=== PATIENT | female | born 1955 | race Caucasian/White ===

== ENCOUNTER 2016-09-22 06:10 | Emergency (ER) | payer MEDICARE ==
[~2016-09-22] VITALS: Ht 152.4 cm; Wt 54.4 kg
[~2016-09-22 06:10] MED LIST: AMOXICILLIN500 M2 PO; ASPIRIN81 M1 PO; CIPRO500 MG PO; K-Dur 20MEQ20 MEQ PO; LEVAQUIN750 M1 PO; MOTRIN800 MG PO; NKHM; PREDNISONE10 MG PO; PROTONIX40 MG PO
[2016-09-22 06:15] VITALS: BP 134/82
[2016-09-22] MEDS ORDERED: AUGMENTIN 875-875 MG PO (06:23)
[2016-09-22] MEDS ORDERED: LEVAQUIN750 M1 PO (06:38)
[2016-10-17] MEDS ORDERED: ACETAMINOPHEN500 M4 PO (11:04)
[2016-10-17] MEDS ORDERED: FLONASE ALLERG9.9 ML NAS (11:04)
[2016-10-17] MEDS ORDERED: CLARITIN10 MG PO (11:04)
== END 2016-09-22 07:01 | disposition home or self-care (01) ==
LOC: ED 06:10
DX: H66.001 Acute suppurative otitis media without spontaneous rupture of ear drum, right ear (principal); G43.909 Migraine, unspecified, not intractable, without status migrainosus; F41.0 Panic disorder [episodic paroxysmal anxiety]; Z87.891 Personal history of nicotine dependence; Z90.49 Acquired absence of other specified parts of digestive tract; Z98.51 Tubal ligation status; Z98.890 Other specified postprocedural states; Z91.041 Radiographic dye allergy status; Z88.6 Allergy status to analgesic agent; Z88.5 Allergy status to narcotic agent

== ENCOUNTER → 2017-01-14 | Outpatient (CLI) | payer MEDICARE ==
[~2017-01-14] MED LIST changes: +ACETAMINOPHEN500 M4 PO; +AUGMENTIN 875-875 MG PO; +CLARITIN10 MG PO; +FLONASE ALLERG9.9 ML NAS
[2017-01-14 07:20] LABS: BASO # 0.1 10*3/uL (0.0-0.1); EOS # 0.2 10*3/uL (0.0-0.4); EOS % 3.3 % (1.0-4.0); HEMATOCRIT 40.6 % (37.0-47.0); HEMOGLOBIN 14.2 g/dl (12.0-16.0); LYMPH # 2.6 10*3/uL (1.3-4.4); LYMPH % 53.7 % (27.0-41.0); MEAN CELL VOLUME 86.6 fl (81.0-99.0); MEAN CORPUSCULAR HGB 30.3 pg (27.0-31.0); MEAN PLATELET VOLUME 9.7 fl (9.6-12.3); MONO # 0.4 10*3/uL (0.1-1.0); MONO % 8.5 % (3.0-9.0); NEUT # 1.6 10*3/uL (2.3-7.9); NEUT % 33.3 % (47.0-73.0); PLATELET COUNT AUTOMATED 194 10*3/uL (130-400); RED BLOOD COUNT 4.69 10*6/uL (4.10-5.10); RED CELL DISTRI WIDTH 12.4 % (0-14.5); WHITE BLOOD COUNT 4.9 10*3/uL (4.8-10.8)
[2017-01-14 08:06] LABS: ALBUMIN 3.6 gm/dl (3.1-4.5); ALKALINE PHOSPHATASE 76 U/L (45-117); BILIRUBIN, TOTAL 0.4 mg/dl (0.2-1.0); BUN 8 mg/dl (7-24); CARBON DIOXIDE 28 mmol/L (21-32); CHLORIDE 106 mmol/L (98-107); CHOLESTEROL 218 mg/dL (<200); EST GLOM FILT AFRICAN AMERICAN > 60 ml/min; GLUCOSE 101 mg/dL (65-99); HDL CHOLESTEROL 63 mg/dl (40-60); LDL CHOLESTEROL 128 mg/dL (9-159); POTASSIUM 3.8 mmol/L (3.5-5.1); SGOT/AST 14 IU/L (3-35); SGPT/ALT 20 U/L (12-78); SODIUM 141 mmol/L (136-145); TRIGLYCERIDES 134 mg/dl (<150); VLDL CHOLESTEROL 27 mg/dL (6-40)
== END | disposition home or self-care (01) ==
LOC: LAB 06:58
PROVIDERS: Internal Medicine
DX: Z00.00 Encounter for general adult medical examination without abnormal findings (principal)

== ENCOUNTER → 2017-01-27 | Outpatient (CLI) | payer MEDICARE ==
--- NOTE | ~2017-01-27 | ST ---
[place], [place] EXERCISE STRESS TEST REPORT [id number] UNIT #: [id number] ROOM: DOCTOR: ALY DUTTA MD BIRTHDATE: [birth year] DOS: 01/27/2017 EXERCISE MYOCARDIAL PERFUSION STUDY INDICATIONS: Precordial chest pain, family history of coronary artery disease. PROCEDURE: The patient walked on a full Damien protocol stress test for 6 minutes and had to stop because of hip pain. She did not recreate her presenting symptoms of chest discomfort. Her resting heart rate of 72 carmen to 151, which was 95% of her maximum predicted heart rate. The resting blood pressure of 114/68 carmen to 152/84. She had up to 1.[address] segment depression in the lateral precordial leads that resolved early in recovery. One minute prior to completion of the exercise protocol. She was given radionuclide intravenously. IMPRESSION: 1. Adequate exercise capacity without chest pain. Exercise was limited due to hip pain. 2. Abnormal electrocardiographic response to exercise with 1.[address] segment depression in the lateral precordial leads. 3. Nevarez treadmill score -1.5 consistent with a moderate risk for future heart cardiac events. 4. Radionuclide injected. Please see the separate imaging report for further details of the patient's stress test results. ALY DUTTA MD CM:STRESS:EXERCISE STRESS TEST REPORT [id number] ALY DUTTA MD
== END | disposition home or self-care (01) ==
LOC: CARD 01:48
DX: R07.2 Precordial pain (principal); R94.31 Abnormal electrocardiogram [ECG] [EKG]; Z82.49 Family history of ischemic heart disease and other diseases of the circulatory system

== ENCOUNTER → 2017-02-16 | Outpatient (CLI) | payer MEDICARE ==
[2017-02-16 07:42] LABS: FREE T4 0.9 ng/dl (0.76-1.46)
[2017-02-16 07:47] LABS: THYROID STIM HORMONE (HS) 3.17 uIU/ml (0.358-4.75)
== END | disposition home or self-care (01) ==
LOC: LAB 06:32
PROVIDERS: Internal Medicine
DX: E03.9 Hypothyroidism, unspecified (principal)

== ENCOUNTER → 2017-04-21 | Outpatient (CLI) | payer MEDICARE | END | disposition home or self-care (01) | LOC: MAMMO 01:52 | DX: Z12.31 Encounter for screening mammogram for malignant neoplasm of breast (principal) ==

== ENCOUNTER → 2017-10-27 | Outpatient (CLI) | payer MEDICARE ==
[2017-10-27 06:57] LABS: BASO # 0.1 10*3/uL (0.0-0.1); BASO % 1.1 % (0.0-1.0); EOS # 0.2 10*3/uL (0.0-0.4); EOS % 3.2 % (1.0-4.0); HEMATOCRIT 42.9 % (37.0-47.0); HEMOGLOBIN 14.7 g/dl (12.0-16.0); LYMPH # 2.8 10*3/uL (1.3-4.4); LYMPH % 52.8 % (27.0-41.0); MEAN CELL VOLUME 87.4 fl (81.0-99.0); MEAN CORPUSCULAR HGB 29.9 pg (27.0-31.0); MEAN CORPUSCULAR HGB CONC 34.3 g/dl (33.0-37.0); MEAN PLATELET VOLUME 10.4 fl (9.6-12.3); MONO # 0.5 10*3/uL (0.1-1.0); MONO % 8.7 % (3.0-9.0); NEUT # 1.8 10*3/uL (2.3-7.9); PLATELET COUNT AUTOMATED 231 10*3/uL (130-400); RED BLOOD COUNT 4.91 10*6/uL (4.10-5.10); RED CELL DISTRI WIDTH 12.5 % (0-14.5); WHITE BLOOD COUNT 5.3 10*3/uL (4.8-10.8)
[2017-10-27 07:27] LABS: ALBUMIN 3.6 gm/dl (3.1-4.5); BUN 12 mg/dl (7-24); CHLORIDE 104 mmol/L (98-107); CHOLESTEROL 208 mg/dL (<200); CREATININE 0.72 mg/dL (0.55-1.02); POTASSIUM 4.3 mmol/L (3.5-5.1); SGOT/AST 26 IU/L (3-35); SGPT/ALT 37 U/L (12-78); SODIUM 140 mmol/L (136-145); TRIGLYCERIDES 124 mg/dl (<150); VLDL CHOLESTEROL 25 mg/dL (6-40)
[2017-10-27 07:36] LABS: ALKALINE PHOSPHATASE 97 U/L (45-117); HDL CHOLESTEROL 55 mg/dl (40-60); LDL CHOLESTEROL 128 mg/dL (9-159); TOTAL PROTEIN 7.5 gm/dL (6.4-8.2)
== END | disposition home or self-care (01) ==
LOC: LAB 06:26
PROVIDERS: Internal Medicine
DX: E03.9 Hypothyroidism, unspecified (principal); E78.00 Pure hypercholesterolemia, unspecified

== ENCOUNTER → 2017-12-05 | Outpatient (CLI) | payer MEDICARE | END | disposition home or self-care (01) | LOC: RAD 11:46 | DX: M99.08 Segmental and somatic dysfunction of rib cage (principal) ==

== ENCOUNTER → 2019-08-26 | Outpatient (CLI) | payer MEDICARE | END | disposition home or self-care (01) | LOC: MAMMO 12:34 | DX: Z12.31 Encounter for screening mammogram for malignant neoplasm of breast (principal) ==

== ENCOUNTER 2019-09-11 10:47 | Emergency (ER) | payer MEDICARE ==
[~2019-09-11] VITALS: Ht 154.9 cm; Wt 56.7 kg
[2019-09-11 10:54] VITALS: BP 138/98
[2019-09-11] MEDS ORDERED: IBU800 MG PO (13:02)
== END 2019-09-11 13:11 | disposition home or self-care (01) ==
LOC: ED 10:47
DX: M54.5 Low back pain (principal); G43.909 Migraine, unspecified, not intractable, without status migrainosus; Z87.891 Personal history of nicotine dependence; Z91.041 Radiographic dye allergy status; Z88.6 Allergy status to analgesic agent; Z88.1 Allergy status to other antibiotic agents; Z88.4 Allergy status to anesthetic agent; X58.XXXA Exposure to other specified factors, initial encounter; Y93.01 Activity, walking, marching and hiking; Y92.89 Other specified places as the place of occurrence of the external cause; Y99.8 Other external cause status

== ENCOUNTER → 2020-04-01 | Outpatient (CLI) | payer MEDICARE ==
[~2020-04-01] MED LIST changes: +IBU800 MG PO
== END | disposition home or self-care (01) ==
LOC: RAD 08:25
DX: R10.31 Right lower quadrant pain (principal); Z90.49 Acquired absence of other specified parts of digestive tract

== ENCOUNTER → 2021-08-09 | Outpatient (CLI) | payer MEDICARE | END | disposition home or self-care (01) | LOC: COVID19 14:55 | PROVIDERS: ATTEND Internal Medicine | DX: Z11.52 Encounter for screening for COVID-19 (principal) ==

== ENCOUNTER → 2021-11-19 | Outpatient (CLI) | payer MEDICARE | END | disposition home or self-care (01) | LOC: LAB 10:10 | PROVIDERS: ATTEND Nurse Practitioner Family | DX: R19.7 Diarrhea, unspecified (principal) ==

== ENCOUNTER → 2022-04-27 | Outpatient (CLI) | payer MEDICARE | END | disposition home or self-care (01) | LOC: RAD 02:11 | PROVIDERS: ATTEND Nurse Practitioner Family | DX: Z13.820 Encounter for screening for osteoporosis (principal); N95.0 Postmenopausal bleeding; Z78.0 Asymptomatic menopausal state ==

== ENCOUNTER → 2022-05-16 | Outpatient (CLI) | payer MEDICARE | END | disposition home or self-care (01) | LOC: RAD 17:30 | PROVIDERS: ATTEND Nurse Practitioner Family | DX: M25.512 Pain in left shoulder (principal) ==

== ENCOUNTER → 2022-06-23 | Outpatient (CLI) | payer MEDICARE | END | disposition home or self-care (01) | LOC: MAMMO 05-02 09:00 | PROVIDERS: ATTEND Nurse Practitioner Family | DX: Z12.31 Encounter for screening mammogram for malignant neoplasm of breast (principal) ==

== ENCOUNTER → 2023-01-26 | Outpatient (CLI) | payer MEDICARE ==
[2023-01-26 07:29] LABS: BASO # 0.1 10*3/uL (0.0-0.1); EOS # 0.1 10*3/uL (0.0-0.4); HEMATOCRIT 44.2 % (37.0-47.0); LYMPH # 2.4 10*3/uL (1.3-4.4); LYMPH % 48.6 % (27.0-41.0); MEAN CELL VOLUME 88.4 fl (81.0-99.0); MEAN CORPUSCULAR HGB 30.6 pg (27.0-31.0); MEAN CORPUSCULAR HGB CONC 34.6 g/dl (33.0-37.0); MEAN PLATELET VOLUME 9.9 fl (9.6-12.3); MONO # 0.4 10*3/uL (0.1-1.0); MONO % 7.6 % (3.0-9.0); NEUT % 40.8 % (47.0-73.0); PLATELET COUNT AUTOMATED 249 10*3/uL (130-400); RED CELL DISTRI WIDTH 12.5 % (0-14.5)
[2023-01-26 08:02] LABS: ALKALINE PHOSPHATASE 89 U/L (46-116); BUN 11 mg/dl (9-23); CHLORIDE 103 mmol/L (98-107); CHOLESTEROL 258 mg/dL (<200); LDL CHOLESTEROL 177 mg/dL (9-159); POTASSIUM 3.8 mmol/L (3.4-5.1); SGPT/ALT 22 U/L (10-49); THYROID STIM HORMONE (HS) 2.943 uIU/ml (0.550-4.780); TOTAL PROTEIN 7.5 gm/dL (6.0-8.0); TRIGLYCERIDES 134 mg/dl (<150)
== END | disposition home or self-care (01) ==
LOC: LAB 07:07
PROVIDERS: ATTEND Nurse Practitioner Family
DX: E16.2 Hypoglycemia, unspecified (principal); R55 Syncope and collapse; E78.00 Pure hypercholesterolemia, unspecified; Z79.899 Other long term (current) drug therapy

== ENCOUNTER → 2024-03-23 | Outpatient (CLI) | payer MEDICARE ==
[~2024-03-23] MED LIST changes: +ASPIRIN ADULT L81 M2 PO; +ATORVASTATIN CA40 M1 PO; +CLOPIDOGREL75 MG PO; +LEVETIRACETAM500 MG PO
== END | disposition home or self-care (01) ==
LOC: LAB 07:20
PROVIDERS: ATTEND Physician Assistant
DX: G40.209 Localization-related (focal) (partial) symptomatic epilepsy and epileptic syndromes with complex partial seizures, not intractable, without status epilepticus (principal)

== ENCOUNTER 2024-06-01 12:22 | Inpatient (IN) | payer MEDICARE ==
[~2024-06-01] VITALS: Ht 152.4 cm; Wt 58.1 kg
[2024-06-01 12:30] VITALS: BP 153/59
[2024-06-01] MEDS ORDERED: Meclizine Hydrochloride 25 MG TAB PO ONE (12:30)
[2024-06-01] MEDS ORDERED: DIAZEPAM 5 MG TAB PO ONE (12:30)
[2024-06-01] MEDS ORDERED: Ondansetron Hydrochloride 4 MG/2 ML VIAL IV ONE (12:30)
[2024-06-01] MEDS ORDERED: SODIUM CHLORIDE 0.9% 1,000 ML IV ONE ×2 (12:30→14:35)
[2024-06-01] MEDS ORDERED: OXCARBAZEPINE150 MG PO (12:34)
[2024-06-01 12:40] LABS: BASO # 0.1 10*3/uL (0.0-0.1); BASO % 1.1 % (0.0-1.0); EOS # 0.1 10*3/uL (0.0-0.4); EOS % 1.8 % (1.0-4.0); HEMATOCRIT 36.7 % (37.0-47.0); LYMPH # 1.7 10*3/uL (1.3-4.4); LYMPH % 37.6 % (27.0-41.0); MEAN CELL VOLUME 85.3 fl (81.0-99.0); MEAN CORPUSCULAR HGB 30.9 pg (27.0-31.0); MEAN CORPUSCULAR HGB CONC 36.2 g/dl (33.0-37.0); MEAN PLATELET VOLUME 8.9 fl (9.6-12.3); MONO # 0.4 10*3/uL (0.1-1.0); MONO % 8.6 % (3.0-9.0); NEUT # 2.2 10*3/uL (2.3-7.9); NEUT % 50.9 % (47.0-73.0); PLATELET COUNT AUTOMATED 214 10*3/uL (130-400); RED CELL DISTRI WIDTH 11.7 % (0-14.5); WHITE BLOOD COUNT 4.4 10*3/uL (4.8-10.8)
[2024-06-01 12:55] LABS: CHLORIDE 94 mmol/L (98-107); POTASSIUM 3.2 mmol/L (3.4-5.1)
[2024-06-01 12:56] LABS: BUN < 5 mg/dl (9-23)
[2024-06-01] MEDS ORDERED: POTASSIUM CHLORIDE 20 MEQ TAB PO ONE (14:35)
[2024-06-01] MEDS ORDERED: Magnesium Hydroxide 30 ML UDC PO PRN (15:25)
[2024-06-01] MEDS ORDERED: BISACODYL 5 MG TAB PO PRN (15:25)
[2024-06-01] MEDS ORDERED: Ondansetron Hydrochloride 4 MG/2 ML VIAL IV PRN (15:25)
[2024-06-01 18:51] LABS: CHLORIDE 101 mmol/L (98-107); POTASSIUM 3.2 mmol/L (3.4-5.1)
[2024-06-01 18:55] LABS: BUN < 5 mg/dl (9-23)
[2024-06-01 21:55] VITALS: BP 111/51
[2024-06-02] VITALS (8 sets, daily range): BP systolic 112–168; BP diastolic 65–86
[2024-06-02 05:10] LABS: ALKALINE PHOSPHATASE 81 U/L (46-116); CHLORIDE 102 mmol/L (98-107); CHOLESTEROL 222 mg/dL (<200); FREE T4 0.96 ng/dl (0.89-1.76); LDL CHOLESTEROL 144 mg/dL (9-159); SGPT/ALT 17 U/L (5-49); TOTAL PROTEIN 6.5 gm/dL (6.0-8.0); TRIGLYCERIDES 90 mg/dl (<150)
[2024-06-02 05:13] LABS: BUN < 5 mg/dl (9-23); POTASSIUM 4.6 mmol/L (3.4-5.1)
[2024-06-02 06:15] LABS: BASO # 0.1 10*3/uL (0.0-0.1); BASO % 1.3 % (0.0-1.0); EOS # 0.1 10*3/uL (0.0-0.4); HEMATOCRIT 38.3 % (37.0-47.0); LYMPH # 2.2 10*3/uL (1.3-4.4); MEAN CELL VOLUME 87.2 fl (81.0-99.0); MEAN CORPUSCULAR HGB 31.2 pg (27.0-31.0); MEAN CORPUSCULAR HGB CONC 35.8 g/dl (33.0-37.0); MEAN PLATELET VOLUME 9.6 fl (9.6-12.3); MONO # 0.4 10*3/uL (0.1-1.0); NEUT # 1.8 10*3/uL (2.3-7.9); NEUT % 39.5 % (47.0-73.0); PLATELET COUNT AUTOMATED 221 10*3/uL (130-400); RED BLOOD COUNT 4.39 10*6/uL (4.10-5.10); RED CELL DISTRI WIDTH 12.2 % (0-14.5); WHITE BLOOD COUNT 4.6 10*3/uL (4.8-10.8)
[2024-06-02 06:57] LABS: VITAMIN D, 25-HYDROXY 16.4 ng/mL (30-100)
[2024-06-02] MEDS ORDERED: Enoxaparin Sodium 40 MG/0.4 ML SYR SC SCH (10:00)
[2024-06-02] MEDS ORDERED: CLONAZEPAM0.25 MG PO (19:00)
[2024-06-02] MEDS ORDERED: OXcarbazepine 150 MG TAB PO SCH (19:10)
[2024-06-03] VITALS: BP 117/60
[2024-06-03 06:15] LABS: BASO # 0.1 10*3/uL (0.0-0.1); BASO % 1.3 % (0.0-1.0); EOS # 0.1 10*3/uL (0.0-0.4); EOS % 2.3 % (1.0-4.0); HEMATOCRIT 41.1 % (37.0-47.0); LYMPH % 50.7 % (27.0-41.0); MEAN CELL VOLUME 87.3 fl (81.0-99.0); MEAN CORPUSCULAR HGB CONC 35.5 g/dl (33.0-37.0); MEAN PLATELET VOLUME 9.9 fl (9.6-12.3); MONO # 0.5 10*3/uL (0.1-1.0); MONO % 8.2 % (3.0-9.0); NEUT # 2.2 10*3/uL (2.3-7.9); NEUT % 37.3 % (47.0-73.0); PLATELET COUNT AUTOMATED 242 10*3/uL (130-400); RED BLOOD COUNT 4.71 10*6/uL (4.10-5.10); RED CELL DISTRI WIDTH 12.2 % (0-14.5)
[2024-06-03 06:52] LABS: BUN 7 mg/dl (9-23); CHLORIDE 98 mmol/L (98-107); POTASSIUM 4.1 mmol/L (3.4-5.1)
[2024-06-03 08:00] VITALS: BP 134/73
[2024-06-03 12:00] VITALS: BP 116/58
== END 2024-06-03 16:31 | disposition home or self-care (01) | DRG 74 ==
LOC: ED 12:22 → EDHOLD 14:44 → 4E 14:44 → EDHOLD 18:03 → 4E 06-02 17:51
PROVIDERS: Emergency Medicine; ADMIT Internal Medicine; ATTEND Internal Medicine
DX: G90.8 Other disorders of autonomic nervous system (principal); E87.1 Hypo-osmolality and hyponatremia; H81.10 Benign paroxysmal vertigo, unspecified ear; E87.6 Hypokalemia; F41.1 Generalized anxiety disorder; G43.909 Migraine, unspecified, not intractable, without status migrainosus; F41.0 Panic disorder [episodic paroxysmal anxiety]; R73.9 Hyperglycemia, unspecified; D72.829 Elevated white blood cell count, unspecified; Z88.6 Allergy status to analgesic agent; Z88.1 Allergy status to other antibiotic agents; Z88.0 Allergy status to penicillin; Z88.8 Allergy status to other drugs, medicaments and biological substances; Z91.09 Other allergy status, other than to drugs and biological substances; Z79.899 Other long term (current) drug therapy; Z79.01 Long term (current) use of anticoagulants; Z79.2 Long term (current) use of antibiotics; Z90.49 Acquired absence of other specified parts of digestive tract; Z87.891 Personal history of nicotine dependence; Z82.49 Family history of ischemic heart disease and other diseases of the circulatory system; Z81.8 Family history of other mental and behavioral disorders

== ENCOUNTER → 2024-08-15 | Outpatient (CLI) | payer MEDICARE ==
[~2024-08-15] MED LIST changes: +CLONAZEPAM0.25 MG PO; +OXCARBAZEPINE150 MG PO
[2024-08-15 12:44] LABS: BUN 7 mg/dl (9-23); CHLORIDE 96 mmol/L (98-107); POTASSIUM 3.8 mmol/L (3.4-5.1)
== END | disposition home or self-care (01) ==
LOC: LAB 12:08
PROVIDERS: ATTEND Nurse Practitioner Family
DX: G40.209 Localization-related (focal) (partial) symptomatic epilepsy and epileptic syndromes with complex partial seizures, not intractable, without status epilepticus (principal)

== ENCOUNTER 2024-08-23 18:03 | Emergency (ER) | payer MEDICARE ==
[~2024-08-23] VITALS: Ht 154.9 cm; Wt 60.8 kg
[2024-08-23 18:40] VITALS: BP 137/73
[2024-08-23 19:03] LABS: BASO # 0.1 10*3/uL (0.0-0.1); BASO % 1.1 % (0.0-1.0); EOS # 0.1 10*3/uL (0.0-0.4); EOS % 2.3 % (1.0-4.0); HEMATOCRIT 40.5 % (37.0-47.0); MEAN CELL VOLUME 89.2 fl (81.0-99.0); MEAN CORPUSCULAR HGB 31.3 pg (27.0-31.0); MEAN CORPUSCULAR HGB CONC 35.1 g/dl (33.0-37.0); MEAN PLATELET VOLUME 9.3 fl (9.6-12.3); MONO # 0.4 10*3/uL (0.1-1.0); MONO % 7.9 % (3.0-9.0); NEUT # 2.4 10*3/uL (2.3-7.9); NEUT % 43.2 % (47.0-73.0); PLATELET COUNT AUTOMATED 230 10*3/uL (130-400); RED BLOOD COUNT 4.54 10*6/uL (4.10-5.10); WHITE BLOOD COUNT 5.5 10*3/uL (4.8-10.8)
[2024-08-23 19:17] LABS: BUN 7 mg/dl (9-23); CHLORIDE 99 mmol/L (98-107); POTASSIUM 3.8 mmol/L (3.4-5.1)
== END 2024-08-23 19:40 | disposition home or self-care (01) ==
LOC: ED 18:03
PROVIDERS: Physician Assistant Medical
DX: F41.9 Anxiety disorder, unspecified (principal); R00.2 Palpitations; R42 Dizziness and giddiness; R25.2 Cramp and spasm; G43.909 Migraine, unspecified, not intractable, without status migrainosus; Z91.041 Radiographic dye allergy status; Z88.6 Allergy status to analgesic agent; Z88.5 Allergy status to narcotic agent; Z88.1 Allergy status to other antibiotic agents; Z88.8 Allergy status to other drugs, medicaments and biological substances; Z91.018 Allergy to other foods; Z98.890 Other specified postprocedural states; Z90.49 Acquired absence of other specified parts of digestive tract; Z87.891 Personal history of nicotine dependence

== ENCOUNTER 2024-09-15 08:23 | Emergency (ER) | payer MEDICARE ==
[~2024-09-15] VITALS: Wt 56.2 kg
[2024-09-15 08:26] VITALS: BP 134/54
[2024-09-15] MEDS ORDERED: SODIUM CHLORIDE 0.9% 1,000 ML IV ONE (09:05)
[2024-09-15] MEDS ORDERED: DIAZEPAM 10 MG/2 ML SYR IV ONE (09:05)
[2024-09-15 09:19] LABS: HEMATOCRIT 39.1 % (37.0-47.0); MEAN CELL VOLUME 86.9 fl (81.0-99.0); MEAN CORPUSCULAR HGB 30.9 pg (27.0-31.0); MEAN CORPUSCULAR HGB CONC 35.5 g/dl (33.0-37.0); MEAN PLATELET VOLUME 9.1 fl (9.6-12.3); MONO # 0.3 10*3/uL (0.1-1.0); MONO % 6.1 % (3.0-9.0); NEUT # 2.8 10*3/uL (2.3-7.9); NEUT % 67.6 % (47.0-73.0); PLATELET COUNT AUTOMATED 219 10*3/uL (130-400); RED CELL DISTRI WIDTH 11.5 % (0-14.5); WHITE BLOOD COUNT 4.1 10*3/uL (4.8-10.8)
[2024-09-15 09:38] LABS: BUN 7 mg/dl (9-23); CHLORIDE 98 mmol/L (98-107); POTASSIUM 3.4 mmol/L (3.4-5.1)
== END 2024-09-15 10:44 | disposition home or self-care (01) ==
LOC: ED 08:23
PROVIDERS: Emergency Medicine
DX: R55 Syncope and collapse (principal); F32.A Depression, unspecified; F41.9 Anxiety disorder, unspecified; G43.909 Migraine, unspecified, not intractable, without status migrainosus; R53.1 Weakness; R11.0 Nausea; Z88.8 Allergy status to other drugs, medicaments and biological substances; Z91.041 Radiographic dye allergy status; Z88.6 Allergy status to analgesic agent; Z88.5 Allergy status to narcotic agent; Z88.1 Allergy status to other antibiotic agents; Z90.49 Acquired absence of other specified parts of digestive tract; Z98.890 Other specified postprocedural states; Z87.891 Personal history of nicotine dependence

== ENCOUNTER → 2024-10-10 | Outpatient (CLI) | payer MEDICARE | END | disposition home or self-care (01) | LOC: LAB 16:25 | PROVIDERS: ATTEND Nurse Practitioner Family | DX: R56.9 Unspecified convulsions (principal) ==

== ENCOUNTER 2024-11-05 21:49 | Emergency (ER) | payer MEDICAID ==
[~2024-11-05] VITALS: Ht 162.5 cm; Wt 65.8 kg
[2024-11-05 22:56] LABS: BILIRUBIN Negative (Negative); BLOOD Negative (Negative); CLARITY Clear (Clear); COLOR Yellow (Yellow); GLUCOSE Negative (Negative); KETONE 1+ (Negative); LEUKO ESTERASE 2+ (Negative); NITRITE Negative (Negative); UROBILINOGEN 0.2 E.U./dl (0.0-1.0)
[2024-11-05 23:00] LABS: BASO % 0.6 % (0.0-1.0); EOS # 0.1 10*3/uL (0.0-0.4); EOS % 1.4 % (1.0-4.0); HEMATOCRIT 38.9 % (37.0-47.0); MEAN CELL VOLUME 85.9 fl (81.0-99.0); MEAN CORPUSCULAR HGB 30.2 pg (27.0-31.0); MEAN CORPUSCULAR HGB CONC 35.2 g/dl (33.0-37.0); MEAN PLATELET VOLUME 9.4 fl (9.6-12.3); MONO # 0.6 10*3/uL (0.1-1.0); MONO % 8.4 % (3.0-9.0); NEUT # 4.6 10*3/uL (2.3-7.9); NEUT % 66.7 % (47.0-73.0); PLATELET COUNT AUTOMATED 248 10*3/uL (130-400); RED BLOOD COUNT 4.53 10*6/uL (4.10-5.10); RED CELL DISTRI WIDTH 11.4 % (0-14.5); WHITE BLOOD COUNT 6.9 10*3/uL (4.8-10.8)
[2024-11-05 23:06] VITALS: BP 160/81
[2024-11-05 23:08] LABS: BACTERIA 1+
[2024-11-05 23:15] LABS: BUN 10 mg/dl (9-23); CHLORIDE 97 mmol/L (98-107); POTASSIUM 3.6 mmol/L (3.4-5.1)
[2024-11-06] MEDS ORDERED: Nitrofurantoin Monohydrate/N 100 MG CAP PO ONE (00:05)
[2024-11-06] MEDS ORDERED: MACROBID100 M1 PO (00:07)
== END 2024-11-06 00:10 | disposition home or self-care (01) ==
LOC: ED 21:49
PROVIDERS: Internal Medicine
DX: E87.1 Hypo-osmolality and hyponatremia (principal); N39.0 Urinary tract infection, site not specified; R25.1 Tremor, unspecified; G43.909 Migraine, unspecified, not intractable, without status migrainosus; R41.82 Altered mental status, unspecified; F41.9 Anxiety disorder, unspecified; Z87.891 Personal history of nicotine dependence; Z91.041 Radiographic dye allergy status; Z88.8 Allergy status to other drugs, medicaments and biological substances; Z88.5 Allergy status to narcotic agent; Z88.1 Allergy status to other antibiotic agents; Z88.6 Allergy status to analgesic agent; Z88.4 Allergy status to anesthetic agent; Z91.018 Allergy to other foods; Z90.49 Acquired absence of other specified parts of digestive tract; Z98.890 Other specified postprocedural states

== ENCOUNTER → 2024-11-28 | Outpatient (CLI) | payer MEDICARE ==
[~2024-11-28] MED LIST changes: +MACROBID100 M1 PO
== END | disposition home or self-care (01) ==
LOC: LAB 16:00
PROVIDERS: ATTEND Nurse Practitioner Family
DX: R56.9 Unspecified convulsions (principal)

== ENCOUNTER → 2024-12-09 | Outpatient (CLI) | payer MEDICARE | END | disposition home or self-care (01) | LOC: MAMMO 02:38 | PROVIDERS: ATTEND Nurse Practitioner Family | DX: Z12.31 Encounter for screening mammogram for malignant neoplasm of breast (principal); R92.323 Mammographic fibroglandular density, bilateral breasts ==

== ENCOUNTER → 2025-01-24 | Outpatient (CLI) | payer MEDICARE | END | disposition home or self-care (01) | LOC: RAD 00:21 | PROVIDERS: ATTEND Urology | DX: N20.1 Calculus of ureter (principal); Z90.49 Acquired absence of other specified parts of digestive tract ==

== ENCOUNTER → 2025-02-11 | Outpatient (CLI) | payer MEDICARE ==
[2025-02-11 10:28] LABS: BASO % 0.8 % (0.0-1.0); EOS # 0.1 10*3/uL (0.0-0.4); EOS % 1.6 % (1.0-4.0); MEAN CELL VOLUME 90.5 fl (81.0-99.0); MEAN CORPUSCULAR HGB 30.5 pg (27.0-31.0); MEAN CORPUSCULAR HGB CONC 33.7 g/dl (33.0-37.0); MEAN PLATELET VOLUME 9.6 fl (9.6-12.3); MONO # 0.4 10*3/uL (0.1-1.0); MONO % 7.3 % (3.0-9.0); NEUT # 2.2 10*3/uL (2.3-7.9); NEUT % 45.4 % (47.0-73.0); PLATELET COUNT AUTOMATED 206 10*3/uL (130-400); RED BLOOD COUNT 4.53 10*6/uL (4.10-5.10); RED CELL DISTRI WIDTH 12.3 % (0-14.5); WHITE BLOOD COUNT 4.9 10*3/uL (4.8-10.8)
== END | disposition home or self-care (01) ==
LOC: LAB 10:14
PROVIDERS: ATTEND Psychiatry & Neurology Neurology
DX: G40.109 Localization-related (focal) (partial) symptomatic epilepsy and epileptic syndromes with simple partial seizures, not intractable, without status epilepticus (principal)

== ENCOUNTER 2025-05-02 12:16 | Emergency (ER) | payer MEDICARE ==
[~2025-05-02] VITALS: Ht 154.9 cm; Wt 54.4 kg
[2025-05-02 12:41] VITALS: BP 160/91
[2025-05-02] MEDS ORDERED: Proparacaine Hydrochloride 15 ML BOT OPH ONE (12:50)
[2025-05-02] MEDS ORDERED: LISSAMINE GREEN 1.5 MG STRIP OP ONE (12:55)
[2025-05-02] MEDS ORDERED: ERYTHROMYCIN 1 GM TUBE OPH ONE ×2 (13:10→13:30)
[2025-05-02] MEDS ORDERED: ERYTHROMYCIN OPH1 GM OPH (13:36)
== END 2025-05-02 13:41 | disposition home or self-care (01) ==
LOC: ED 12:16
DX: S05.02XA Injury of conjunctiva and corneal abrasion without foreign body, left eye, initial encounter (principal); Z91.041 Radiographic dye allergy status; Z88.6 Allergy status to analgesic agent; Z88.5 Allergy status to narcotic agent; Z88.1 Allergy status to other antibiotic agents; Z91.018 Allergy to other foods; Z88.8 Allergy status to other drugs, medicaments and biological substances; Z79.899 Other long term (current) drug therapy; Z90.49 Acquired absence of other specified parts of digestive tract; Z87.42 Personal history of other diseases of the female genital tract; Z87.891 Personal history of nicotine dependence; X58.XXXA Exposure to other specified factors, initial encounter; Y93.89 Activity, other specified; Y92.89 Other specified places as the place of occurrence of the external cause; Y99.8 Other external cause status

== ENCOUNTER → 2025-05-07 | Outpatient (CLI) | payer MEDICARE ==
[~2025-05-07] MED LIST changes: +ERYTHROMYCIN OPH1 GM OPH
[2025-05-07 10:05] LABS: BUN 11 mg/dl (9-23)
== END | disposition home or self-care (01) ==
LOC: LAB 09:26
PROVIDERS: ATTEND Psychiatry & Neurology Neurology
DX: G40.109 Localization-related (focal) (partial) symptomatic epilepsy and epileptic syndromes with simple partial seizures, not intractable, without status epilepticus (principal)

== ENCOUNTER → 2025-05-16 | Outpatient (CLI) | payer MEDICARE | LOC: MRI 00:07 | PROVIDERS: ATTEND Orthopaedic Surgery | DX: M25.461 Effusion, right knee (principal); M17.11 Unilateral primary osteoarthritis, right knee; M79.89 Other specified soft tissue disorders; M25.861 Other specified joint disorders, right knee ==

== ENCOUNTER → 2025-08-19 | Outpatient (CLI) | payer MEDICARE ==
[2025-08-19 11:20] LABS: BASO # 0.1 10*3/uL (0.0-0.1); BASO % 1.2 % (0.0-1.0); EOS # 0.1 10*3/uL (0.0-0.4); EOS % 1.5 % (1.0-4.0); MEAN CELL VOLUME 88.8 fl (81.0-99.0); MEAN CORPUSCULAR HGB 31.7 pg (27.0-31.0); MEAN PLATELET VOLUME 9.0 fl (9.6-12.3); MONO # 0.5 10*3/uL (0.1-1.0); MONO % 7.7 % (3.0-9.0); NEUT # 2.7 10*3/uL (2.3-7.9); NEUT % 46.9 % (47.0-73.0); NUCLEATED RED BLOOD CELL 0.0 % (0.0-0.0); NUCLEATED RED BLOOD CELL 0.0 10*3/uL (0.0-0.0); PLATELET COUNT AUTOMATED 218 10*3/uL (130-400); RED CELL DISTRI WIDTH 11.8 % (0-14.5)
[2025-08-19 11:53] LABS: BUN 12 mg/dl (9-23); SGPT/ALT 17 U/L (5-49)
== END | disposition home or self-care (01) ==
LOC: LAB 10:58
PROVIDERS: Psychiatry & Neurology Neurology; ATTEND Nurse Practitioner Family
DX: G40.109 Localization-related (focal) (partial) symptomatic epilepsy and epileptic syndromes with simple partial seizures, not intractable, without status epilepticus (principal)